=== PATIENT | female | born 1960 | race Caucasian/White ===

== ENCOUNTER 2025-05-20 11:21 | Outpatient (CLI) | payer MEDICARE, MEDICAID ==
--- NOTE | 2025-05-20 12:43 | RADIOLOGY REPORT ---
EXAM: CT CT CHEST LOW DOSE HISTORY: NICOTINE DEPENDENCE, CIGARETTES COMPARISON: None TECHNIQUE: Noncontrast helical CT images of the chest were performed utilizing low dose lung cancer s creening protocol. Sagittal and coronal reformatted images were obtained. This CT exam was performed using one or more of the following dose reduction techniques: Automated exposure control, adjustment of the mA and/or kV according to patient size, or use of iterative reconstruction technique. Radiation Dose: CT Dose: CTDI volume is 2.8 mGy. Dose-length product is 102.49 mGy*cm FINDINGS: No noncalcified pulmonary nodules, consolidative infiltrates, pneumothorax, pleural effusio ns, or pulmonary edema. There is moderate centrilobular emphysema, greatest in the upper lobes. There is mild platelike atelectasis versus scarring in the lingula. There is a calcified granuloma in the right lower lobe. No suspicious mediastinal or axillary adenopathy. The heart is borderline enlarged. There are coronary artery calcifications. No thoracic aortic aneurysm. There is a calcified nodule i n the left lobe of the thyroid. There is mild pectus excavatum deformity of the lower chest. Probable old healed fracture of the sternal body. The bone marrow of the vertebral bodies and sternum demons trates diffusely mottled appearance. There is a lytic lesion in the C6 vertebral body posteriorly to the right of midline (image 66, series 602; image 5, series 4). IMPRESSION: 1. No noncalcified pulmonary nodules or other acute intrathoracic process. 2. Emphysema. 3. Coronary artery disease and borderline cardiomegaly. 4. Old granulomatous disease of the chest. 5. Mottled appearance of the bone marrow of the spine and sternum, and lytic lesion of the C6 vertebr al body. These findings may be due to metastatic malignancy, myelofibrosis, metabolic disorder, or o ther etiology. Recommend follow-up pre and post-contrast MRI of the thoracic spine for better charact erization. Whole-body bone scan and/or whole-body PET -CT may also be warranted. Lung-RADS 1S. Negative. Continue annual screening with LDCT in 12 months. Lung-RADS v2022.
--- NOTE | 2025-05-20 13:41 | RADIOLOGY REPORT ---
Exam: US US NON VASCULAR Clinical History: GANGLION, LEFT WRIST Comparison: None Technique: Targeted sonographic evaluation of the soft tissues of the left wrist was obtained utilizing graysca le and color Doppler imaging. Findings/Impression: There is no evidence for drainable collection. There is no evidence for solid or cystic mass in the site. No vascular abnormalities identified at this site.
== END 2025-05-20 23:59 | disposition home or self-care (01) ==
LOC: RAD 11:21
PROVIDERS: ATTEND Family Medicine
DX: Z12.2 Encounter for screening for malignant neoplasm of respiratory organs (principal); J43.2 Centrilobular emphysema; J98.4 Other disorders of lung; I25.10 Atherosclerotic heart disease of native coronary artery without angina pectoris; M95.4 Acquired deformity of chest and rib; M67.432 Ganglion, left wrist; F17.210 Nicotine dependence, cigarettes, uncomplicated
CPT/HCPCS: 71271; 76882